=== PATIENT | male | born 1985 | race Two or more races ===

== ENCOUNTER 2017-07-09 14:40 | Emergency (ER) | payer SELFPAY ==
--- NOTE | 2017-07-09 14:48 | PDOC ---
History of Present Illness - General History Source: Patient Exam Limitations: No Limitations <Leela Bill - Last Filed: 07/09/17 15:01> - General History Source: Family Exam Limitations: No Limitations - History of Present Illness Initial Comments: 07/09/17 14:56 The patient is a 32 year old male with no significant past medical history presents to the emergency department w/ right foot injury. The patient reports he was cooking spaghetti when the spaghetti gravy accidentally dropped on his right foot. The patient reports a mild localized pain, w/ blistering, denies taking any medication for the leg. Denies any other injury to the leg. The patient is unsure of his last tetanus shots. Allergies:NKDA Social history: The patient denies history of smoking, reports weekly use of alcohol and denies the use of recreational drugs. <Charo Doan - Last Filed: 07/09/17 15:11> - General Chief Complaint: Burn Stated Complaint: RT FOOT BURN Past History <Leela Bill - Last Filed: 07/09/17 15:01> <Charo Doan - Last Filed: 07/09/17 15:11> - Past Medical History Allergies/Adverse Reactions: Allergies Allergy/AdvReac Type Severity Reaction Status Date / Time No Known Allergies Allergy Verified 07/09/17 14:48 Home Medications: Ambulatory Orders NK [No Known Home Medication] 07/09/17 Review of Systems - Review of Systems Able to Perform ROS?: Yes Comments:: 07/09/17 14:57 GENERAL/CONSTITUTIONAL: No fever or chills. No weakness. HEAD, EYES, EARS, NOSE AND THROAT: No change in vision. No ear pain or discharge. No sore throat. CARDIOVASCULAR: No chest pain or shortness of breath. RESPIRATORY: No cough, wheezing, or hemoptysis. GASTROINTESTINAL: No nausea, vomiting, diarrhea or constipation. GENITOURINARY: No dysuria, frequency, or change in urination. MUSCULOSKELETAL: (+) R. foot burn. No joint or muscle swelling or pain. No neck or back pain. SKIN: No rash NEUROLOGIC: No headache, vertigo, loss of consciousness, or change in strength/ sensation. ENDOCRINE: No increased thirst. No abnormal weight change. HEMATOLOGIC/LYMPHATIC: No anemia, easy bleeding, or history of blood clots. ALLERGIC/IMMUNOLOGIC: No hives or skin allergy. <Charo Doan - Last Filed: 07/09/17 15:11> *Physical Exam - Physical Exam General Appearance: Yes: Appropriately Dressed Neck: positive: Trachea midline Respiratory/Chest: positive: Lungs Clear, Normal Breath Sounds Cardiovascular: positive: Regular Rhythm, Regular Rate, S1, S2 Musculoskeletal: positive: Other (burn to right foot, second degree) Extremity: positive: Normal Capillary Refill Integumentary: positive: Other (3% second degree burn to dorsum right foot. plantar surface spared, below ankle. dermis intact with blisters. ) Neurologic: positive: Other (distally nv intact right foot.) <Leela Bill - Last Filed: 07/09/17 15:01> - Vital Signs Last Vital Signs Temp Pulse Resp BP Pulse Ox 98.8 F 79 18 170/100 99 07/09/17 14:40 07/09/17 14:40 07/09/17 14:40 07/09/17 14:40 07/09/17 14:40 <Charo Doan - Last Filed: 07/09/17 15:11> Medical Decision Making - Medical Decision Making 07/09/17 15:01 pt with second degree burn to dorsum foot, skin over blisters intact. plan antiobiotics cream and nonadherant dressing. dc home.l <Leela Bill - Last Filed: 07/09/17 15:01> *DC/Admit/Observation/Transfer <Leela Bill - Last Filed: 07/09/17 15:01> - Attestations Scribe Attestion: 07/09/17 15:11 Documentation prepared by Charo Doan, acting as medical delivery driver for Leela Bill MD. <Charo Doan - Last Filed: 07/09/17 15:11> Diagnosis at time of Disposition: Burn of second degree of right foot, initial encounter - Discharge Dispostion Disposition: HOME Condition at time of disposition: Improved - Patient Instructions Printed Discharge Instructions: How to Take Care of a Burn Additional Instructions: you should apply bacitracin ointment twice daily . cleam with mild soap and water. do not rub , but pat dry to avoid breaking the blisters. return for redness, swelling or any signs of infection. Print Language: PORTUGUESE
[2017-07-09] MEDS ORDERED: IBUPROFEN 600 MG TABLET (FP) PO ONE ×2 (14:50→14:56)
[2017-07-09 14:53] VITALS: BP 170/100; PULSE 79; TEMP 98.8
[2017-07-09 14:56] VITALS: BMI 25.7
[2017-07-09] MEDS ORDERED: SILVER SULFADIAZINE 1% TOP CREAM 50 GM JAR TP ONE ×2 (14:58→15:09)
== END 2017-07-09 15:10 | disposition home or self-care (01) ==
LOC: FER 14:40
PROC: 2W2SX4Z Dressing of Right Foot using Bandage (ICD-10-PCS; principal; 2017-07-09)
DX: T25.221A Burn of second degree of right foot, initial encounter (principal); X10.1XXA Contact with hot food, initial encounter; Y93.89 Activity, other specified; Y92.9 Unspecified place or not applicable
CPT/HCPCS: 99282-25

== ENCOUNTER 2017-07-12 14:24 | Emergency (ER) | payer SELFPAY ==
[2017-07-12 14:30] VITALS: BP 116/79; PULSE 73; TEMP 98.9; BMI 25.7
[2017-07-12] MEDS ORDERED: IBUPROFEN 600 MG TABLET (FP) PO ONE (14:34)
--- NOTE | 2017-07-12 14:34 | PDOC ---
Suture Removal/Wound Check HPI - History of Present Illness Chief Complaint: Revisit,Wound Recheck Stated Complaint: wound check Time Seen by Provider: 07/12/17 14:26 History Source: Yes: Patient Exam Limitations: Yes: No Limitations Treated at: [facility] Date of Last ED visit: 07/09/17 - Previous ED Treatment Type of procedure performed on last visit: Yes: Burn Dressing - Onset of Previous Treatment Date of Occurence: 07/09/17 Comment:: 07/12/17 14:30 pt with h/;o recent second degree burn to right foot . has left dressing in place since ed visit. c/o mod pain. no f/c now noted blister forming. on exam foot no erythema. large clear colored blister covering dorsum foot. does not involve toes or cross joint. no sx of infection. plan recommend continued bacitracin and wound care daily. follow up with pcp. Past History - Past Medical History Allergies/Adverse Reactions: Allergies Allergy/AdvReac Type Severity Reaction Status Date / Time No Known Allergies Allergy Verified 07/12/17 14:26 Home Medications: Ambulatory Orders NK [No Known Home Medication] 07/09/17 COPD: No - Suicide/Smoking/Psychosocial Hx Smoking History: Never smoked Have you smoked in the past 12 months: No Hx Alcohol Use: (weekly) Substance Use Type: None *DC/Admit/Observation/Transfer Diagnosis at time of Disposition: Burn of foot, right, second degree - Discharge Dispostion Disposition: HOME Condition at time of disposition: Improved - Referrals - Patient Instructions Printed Discharge Instructions: How to Take Care of a Burn Additional Instructions: return for redness swelling. fever or any concerns or signs of infection. continue to apply bacitracin ointment twice daily - Post Discharge Activity
[2017-07-12] MEDS ORDERED: SILVER SULFADIAZINE 1% TOP CREAM 50 GM JAR TP ONE (14:39)
== END 2017-07-12 15:02 | disposition home or self-care (01) ==
LOC: FER 14:24
DX: Z48.01 Encounter for change or removal of surgical wound dressing (principal)
CPT/HCPCS: 99281-25